=== PATIENT | female | born 2000 | race Caucasian/White ===

== ENCOUNTER 2022-05-31 10:29 | Emergency (ER) | payer BC ==
[2022-05-31] MEDS ORDERED: PAXLOVID CO-PA1 EACH PO ×3 (12:30→15:24)
[2022-05-31 12:59] LABS: HEMOGLOBIN 12.1 gm/dl (12.3-15.3); RED BLOOD COUNT 4.14 M/UL (4.00-5.10); WHITE BLOOD COUNT 3.8 K/UL (4.5-11.0)
[2022-05-31 13:37] LABS: BUN/CREATININE RATIO 9 (0-10)
== END 2022-05-31 13:45 | disposition home or self-care (01) ==
LOC: ER1 10:29
PROVIDERS: Physician Assistant
DX: U07.1 COVID-19 (principal); J20.9 Acute bronchitis, unspecified; R55 Syncope and collapse
CPT/HCPCS: 71045; 80053; 84703; 85025; 99284